=== PATIENT | female | born 2005 | race Caucasian/White ===

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

== ENCOUNTER 2024-06-05 11:21 | Emergency (ER) | payer MEDICAID ==
[~2024-06-05] VITALS: Ht 154.9 cm; Wt 57.2 kg
[~2024-06-05 11:21] MED LIST changes: +FAMO-129 PO; +LOPE2CAP PO; +ONDA-245 PO
[2024-06-05 11:25] VITALS: TEMP 98.9
[2024-06-05 12:09] LABS: URINE HCG NEGATIVE (NEG)
[2024-06-05 12:11] LABS: BILIRUBIN,URINE NEGATIVE (Neg); CLARITY,URINE CLEAR (Clear); COLOR,URINE YELLOW (Yellow); GLUCOSE, URINE NEGATIVE (Neg); KETONES,URINE NEGATIVE (Neg); LEUKOCYTE ESTERASE ,URINE NEGATIVE (Neg); NITRITES, URINE NEGATIVE (Neg); OCCULT BLOOD,URINE NEGATIVE (Neg); PROTEIN,URINE NEGATIVE (Neg); UROBILINOGEN,URINE 0.2 E.U/dL (0.2-1.0)
[2024-06-05 12:15] LABS: UA COLLECTION TYPE CLN CATCH MIDSTREAM
[2024-06-05 12:27] LABS: BASOPHILS % (AUTO) 0.7 % (0-1); EOSINOPHILS # (AUTO) 0.1 X10'3 (0-0.9); EOSINOPHILS % (AUTO) 1.8 % (0-6); HEMATOCRIT 37.4 % (35.0-45.0); HEMOGLOBIN 12.8 g/dl (12.0-16.0); LYMPHOCYTES # (AUTO) 1.7 X10'3 (1.1-4.8); LYMPHOCYTES % (AUTO) 32.8 % (21-51); MEAN CORPUSCULAR HGB CONC 34.2 g/dL (33.0-36.5); MEAN CORPUSCULAR VOLUME 93.5 FL (78-98); MONOCYTES # (AUTO) 0.3 X10'3 (0-0.9); NEUTROPHILS % (AUTO) 59.7 % (42-75); PLATELET COUNT 220 X10'3 (140-440); RED CELL DISTRIBUTION WIDTH 12.7 % (11.5-14.5); WHITE BLOOD COUNT 5.1 X10'3 (4.5-11.0)
[2024-06-05] MEDS: mag hydrox/Alum hydrox/simeth 30ml oral suspension PO STA (12:34)
[2024-06-05 12:37] LABS: ALANINE AMINOTRANSFERASE 20 U/L (12-78); ALBUMIN 3.9 G/DL (3.4-5.0); ALBUMIN/GLOBULIN RATIO 1.1 (1.1-1.5); ALKALINE PHOSPHATASE 59 IU/L (20-180); ANION GAP 5 (8-16); ASPARTATE AMINO TRANSFERASE 15 U/L (10-37); BILIRUBIN,TOTAL 0.4 MG/DL (0.1-1.0); BLOOD UREA NITROGEN 10 MG/DL (7-18); CALCIUM 9.3 MG/DL (8.5-10.1); CHLORIDE 106 MMOL/L (99-107); CREATININE 0.77 MG/DL (0.40-0.90); GLUCOSE 94 MG/DL (70-104); LIPASE 28 U/L (16-77); POTASSIUM 4.4 MMOL/L (3.5-5.1); SODIUM 137 MMOL/L (135-145); TOTAL CARBON DIOXIDE 25.9 MMOL/L (24-32); TOTAL PROTEIN 7.4 G/DL (6.4-8.2); eCRCL 88 ML/MIN; eGFR > 90 ML/MIN
[2024-06-05] MEDS ORDERED: SUCR1TAB PO (15:32)
[2024-06-05] MEDS ORDERED: PANT40TA54 PO (15:32)
[2024-06-05] MEDS: sucralfate 1 gm tablet PO STA (15:35)
[2024-06-05] MEDS: ondansetron 4mg rapidly disintigrating tab PO STA (15:35)
[2024-06-05] MEDS: pantoprazole 40mg Tablet.DR PO STA (15:35)
[2024-06-05] MEDS ORDERED: ONDA-243 PO (15:48)
[2024-06-05 16:49] VITALS: BP 112/63; PULSE 60; RESP 16; O2SAT 98
== END 2024-06-05 16:50 | disposition home or self-care (01) ==
LOC: ER 11:21
DX: K29.00 Acute gastritis without bleeding (principal); Z88.8 Allergy status to other drugs, medicaments and biological substances
CPT/HCPCS: 36415; 76700; 80053; 81003; 81025; 83690; 85025; 99284

== ENCOUNTER 2024-06-09 22:13 | Emergency (ER) | payer MEDICAID ==
[~2024-06-09] VITALS: Ht 154.9 cm; Wt 56.7 kg
[~2024-06-09 22:13] MED LIST changes: +ONDA-243 PO; +PANT40TA54 PO; +SUCR1TAB PO; +iohexol 300mg/ml 100ml inj. ONE
[2024-06-09 22:40] LABS: URINE HCG NEGATIVE (NEG)
[2024-06-09 22:52] LABS: BILIRUBIN,URINE NEGATIVE (Neg); CLARITY,URINE CLEAR (Clear); COLOR,URINE YELLOW (Yellow); GLUCOSE, URINE NEGATIVE (Neg); KETONES,URINE NEGATIVE (Neg); LEUKOCYTE ESTERASE ,URINE NEGATIVE (Neg); NITRITES, URINE NEGATIVE (Neg); OCCULT BLOOD,URINE TRACE-INTACT (Neg); PROTEIN,URINE NEGATIVE (Neg); UA COLLECTION TYPE CLN CATCH MIDSTREAM
[2024-06-09 22:52] LABS: ALANINE AMINOTRANSFERASE 21 U/L (12-78); ALBUMIN 3.8 G/DL (3.4-5.0); ALBUMIN/GLOBULIN RATIO 1.1 (1.1-1.5); ALKALINE PHOSPHATASE 63 IU/L (20-180); ANION GAP 6 (8-16); ASPARTATE AMINO TRANSFERASE 15 U/L (10-37); BILIRUBIN,TOTAL 0.2 MG/DL (0.1-1.0); BLOOD UREA NITROGEN 9 MG/DL (7-18); BUN/CREATININE RATIO 10.2 (10.0-20.0); CALCIUM 9.1 MG/DL (8.5-10.1); CHLORIDE 106 MMOL/L (99-107); CREATININE 0.88 MG/DL (0.40-0.90); GLUCOSE 107 MG/DL (70-104); LIPASE 37 U/L (16-77); POTASSIUM 4.3 MMOL/L (3.5-5.1); SODIUM 140 MMOL/L (135-145); TOTAL CARBON DIOXIDE 28.3 MMOL/L (24-32); TOTAL PROTEIN 7.3 G/DL (6.4-8.2); eCRCL 77 ML/MIN; eGFR 82 ML/MIN
[2024-06-09 22:54] LABS: BASOPHILS % (AUTO) 0.5 % (0-1); EOSINOPHILS # (AUTO) 0.1 X10'3 (0-0.9); EOSINOPHILS % (AUTO) 1.9 % (0-6); HEMATOCRIT 37.2 % (35.0-45.0); HEMOGLOBIN 12.5 g/dl (12.0-16.0); LYMPHOCYTES # (AUTO) 2.6 X10'3 (1.1-4.8); LYMPHOCYTES % (AUTO) 45.3 % (21-51); MEAN CORPUSCULAR HEMOGLOBIN 31.5 PG (27.0-31.0); MEAN CORPUSCULAR HGB CONC 33.7 g/dL (33.0-36.5); MEAN CORPUSCULAR VOLUME 93.5 FL (78-98); MEAN PLATELET VOLUME 9.4 FL (7.4-10.4); MONOCYTES # (AUTO) 0.4 X10'3 (0-0.9); MONOCYTES % (AUTO) 6.1 % (2-12); NEUTROPHILS # (AUTO) 2.7 X10'3 (1.8-7.7); NEUTROPHILS % (AUTO) 46.2 % (42-75); PLATELET COUNT 203 X10'3 (140-440); RED BLOOD COUNT 3.97 X10'6 (4.20-5.60); RED CELL DISTRIBUTION WIDTH 12.7 % (11.5-14.5); WHITE BLOOD COUNT 5.8 X10'3 (4.5-11.0)
[2024-06-09 23:02] LABS: BACTERIA,URINE 2+ /HPF (Neg); CAL OXALATE CRYSTALS 2+ /HPF (NEGATIVE); MUCUS STRANDS MODERATE /LPF (Neg); RBC,URINE 0-2 /HPF (0-2); SQUAMOUS EPITHELIAL CELL,UR MANY /LPF (FEW); WBC,URINE 0-4 /HPF (0-4)
[2024-06-10] MEDS: sennosides/docusate sodium tablet PO ONE (01:42)
[2024-06-10 01:44] VITALS: TEMP 98.7
[2024-06-10 01:50] LABS: C-REACTIVE PROTEIN < 0.05 MG/DL (0.0-0.5)
[2024-06-10] MEDS: magnesium citrate 296ml oral solution PO ONE (02:20)
[2024-06-10] MEDS ORDERED: DOCU100C38 PO (02:59)
[2024-06-10] MEDS: LIDOcaine 2% Viscous 15ml cup MM ONE (03:02)
[2024-06-10] MEDS: mag hydrox/Alum hydrox/simeth 30ml oral suspension PO ONE (03:02)
[2024-06-10] MEDS: polyethylene glycol 3350 17gm powd pack PO ONE (03:02)
[2024-06-10 03:10] VITALS: BP 101/53; PULSE 68; RESP 18; O2SAT 98
== END 2024-06-10 03:13 | disposition home or self-care (01) ==
LOC: ER 22:14
DX: K59.00 Constipation, unspecified (principal); Z88.8 Allergy status to other drugs, medicaments and biological substances; Z91.018 Allergy to other foods; Z91.048 Other nonmedicinal substance allergy status; Z79.899 Other long term (current) drug therapy
CPT/HCPCS: 36415; 74177; 80053; 81001; 81025; 83690; 85025; 85651; 86140; 99285; Q9967; 99284

== ENCOUNTER 2024-06-27 21:09 | Emergency (ER) | payer MEDICAID ==
[~2024-06-27] VITALS: Ht 154.9 cm; Wt 55.7 kg
[~2024-06-27 21:09] MED LIST changes: +DOCU100C38 PO; -iohexol 300mg/ml 100ml inj. ONE
[2024-06-27 21:55] LABS: BASOPHILS % (AUTO) 0.4 % (0-1); EOSINOPHILS # (AUTO) 0.1 X10'3 (0-0.9); EOSINOPHILS % (AUTO) 1.3 % (0-6); HEMATOCRIT 38.3 % (35.0-45.0); HEMOGLOBIN 13.1 g/dl (12.0-16.0); LYMPHOCYTES # (AUTO) 2.3 X10'3 (1.1-4.8); LYMPHOCYTES % (AUTO) 41.2 % (21-51); MEAN CORPUSCULAR HEMOGLOBIN 31.5 PG (27.0-31.0); MEAN CORPUSCULAR HGB CONC 34.1 g/dL (33.0-36.5); MEAN CORPUSCULAR VOLUME 92.5 FL (78-98); MEAN PLATELET VOLUME 8.5 FL (7.4-10.4); MONOCYTES # (AUTO) 0.3 X10'3 (0-0.9); MONOCYTES % (AUTO) 5.9 % (2-12); NEUTROPHILS # (AUTO) 2.9 X10'3 (1.8-7.7); NEUTROPHILS % (AUTO) 51.2 % (42-75); PLATELET COUNT 247 X10'3 (140-440); RED BLOOD COUNT 4.14 X10'6 (4.20-5.60); RED CELL DISTRIBUTION WIDTH 12.6 % (11.5-14.5); WHITE BLOOD COUNT 5.6 X10'3 (4.5-11.0)
[2024-06-27 22:01] LABS: ALANINE AMINOTRANSFERASE 16 U/L (12-78); ALBUMIN/GLOBULIN RATIO 1.1 (1.1-1.5); ALKALINE PHOSPHATASE 58 IU/L (20-180); ANION GAP 10 (8-16); ASPARTATE AMINO TRANSFERASE 16 U/L (10-37); BILIRUBIN,TOTAL 0.4 MG/DL (0.1-1.0); BLOOD UREA NITROGEN 9 MG/DL (7-18); CALCIUM 9.4 MG/DL (8.5-10.1); CHLORIDE 105 MMOL/L (99-107); CREATININE 0.82 MG/DL (0.40-0.90); GLUCOSE 90 MG/DL (70-104); POTASSIUM 4.3 MMOL/L (3.5-5.1); SODIUM 141 MMOL/L (135-145); TOTAL CARBON DIOXIDE 25.6 MMOL/L (24-32); TOTAL PROTEIN 7.7 G/DL (6.4-8.2); eCRCL 83 ML/MIN; eGFR 89 ML/MIN
[2024-06-27 22:07] LABS: HCG SERUM QL NEGATIVE
--- NOTE | 2024-06-27 22:36 | RADIOLOGY REPORT ---
CT CT HEAD INDICATION: wORST HEADACHE OF LIFE COMPARISON: None TECHNIQUE: CT of the head without intravenous contrast. RADIATION DOSE: CTDIvol: mGy, DLP: mGy*cm FINDINGS: There is no evidence of intracranial hemorrhage, infarct, extra-axial collection, mass effect, midli ne shift, herniation or hydrocephalus. The ventricles, sulci and cisterns are normal. The valadez-white differentiation is normal. Soft tissues and osseous structures are unremarkable. IMPRESSION: No intracranial abnormality.
[2024-06-27] MEDS: metoclopramide 5 mg/ml inj IV ONE (23:33)
[2024-06-27] MEDS: ketorolac trometh 30MG/ML vial 30 MG/ML VIAL IV ONE (23:33)
[2024-06-27] MEDS: acetaminophen 1,000mg/100ml IV 100 ML IV ONE (23:34)
[2024-06-27] MEDS: normal saline 1000ml 1,000 ML IV ONE (23:34)
[2024-06-27] MEDS: diphenhydrAMINE 50 mg/ml inj IV ONE (23:34)
[2024-06-27 23:44] VITALS: TEMP 98.7
--- NOTE | 2024-06-27 23:49 | Physician Documentation ---
History of Present Illness General Chief Complaint: Headache Stated Complaint: MIGRAIN Time Seen by MD: 21:34 Primary Medical Doctor: FABIÁN History of Present Illness Initial Comments Melissa is otherwise a healthy 19-year-old female who presents to the emergency department with a complaint of headache that has been present for 6-7 hours. Patient has a history of migraines and is incompletely sure of how many migraine day she has a month but it seems to be less than four five. Her headache today is different in character and in severity. It was very severe today with associated nausea, visual difficulties and sound aggravation. Pain began as temporal and then went to the center of her scalp in his traveled backwards. 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 Patient was does not take Migraine prophylactic medications. Denies fever, recent illness injury or fevers. Medication Reconciliation Allergies: Coded Allergies: lamotrigine (Verified Allergy, Severe, SHERMAN-GAVIN, 06/27/24) shrimp (Unverified Allergy, Unknown, 06/27/24) aloe vera (Verified Adverse Reaction, Intermediate, BOURNE SKIN, 06/27/24) Scheduled Bisacodyl (Dulcolax), 4 TAB PO ONCE Docusate Sodium (Docusate Sodium), 1 CAP PO Q12H Famotidine (Pepcid), 1 TAB PO Q12H Lamotrigine (Lamotrigine), 1 TAB PO DAILY, (Reported) Lansoprazole (Prevacid), 1 CAP PO DAILY Loperamide Hcl (Loperamide), 2 CAP PO Q6H ONDANSETRON ODT 4mg tablet (Ondansetron Odt), 4 MG PO BID Ondansetron 8mg ODT (Ondansetron Odt), 1 TAB PO Q6H Pantoprazole Sodium (Pantoprazole Sodium), 1 TAB PO DAILY Polyethylene Glycol 3350 (Miralax), 17 GM PO DAILY Quetiapine Fumarate (Quetiapine Fumarate), 1 TAB PO HS, (Reported) Sucralfate (Sucralfate), 1 TAB PO Q6H Vilazodone HCl (Vilazodone HCl), 1 TAB PO DAILY, (Reported) Past Medical History Past Medical History: *PSYCH* Other Past Surgical History: 'Tubes in her ears' Alcohol Use: None Drug Use: none Lives with: Mother, Father Lives In: Home Review of Systems All Other Systems at this time: Reviewed and Negative Constitutional: Denies: fever, chills Eye: Reports: pain, photophobia RESP: Denies: short of breath, cough CV: Denies: chest pain, palpitations GI: Reports: nausea Neuro: Reports: headache; Denies: seizures, dizziness, weakness, numbness, tingling Physical Exam Physical Exam Vital Signs: RN Vital Signs have been reviewed: Yes, Temperature: 98.7, Source: Oral, Heart Rate: 78, Respiratory Rate: 14, BP: 119/66, Pulse Oximetry: 99, Weight: 55.680 Oxygen Flow Rate: 0 General Appearance: alert, WD/WN, moderate distress Head: normal inspection Face: normal inspection Pupils/EOM/Fundus: PERRLA Neck: non-tender, full range of motion, supple; No: meningeal signs Respiratory: lungs clear Chest: no accessory muscle use Cardiovascular: regular rate, rhythm Gastrointestinal: normal palpation Back: normal inspection Extremities: normal range of motion Neurologic: oriented x4, dredge mate II-XII nml as tested Motor / Sensory: no motor deficit, no sensory deficit Psychiatric: normal mood/affect Skin: normal color, warm/dry Progress Results/Orders Results/Orders Orders - CYDNEY WERNER PAC Urinalysis, Cult If Indicated (06/27/24 21:33) Ct Head (06/27/24 22:20) Normal Saline 1000ml (Sodium Chloride 10 (06/27/24 22:55) Completed Orders - CYDNEY WERNER PAC Cbc/Diff (06/27/24 21:33) CMP (06/27/24 21:33) Hcg Serum Ql (06/27/24 21:33) Ct Head (06/27/24 22:20) Acetaminophen 1,000mg/100ml Iv (Ofirmev (06/27/24 22:55) Ketorolac Trometh 30mg/Ml Vial (Toradol (06/27/24 22:55) Metoclopramide Inj (Reglan Inj) (06/27/24 22:55) Diphenhydramine Inj (Benadryl Inj.) (06/27/24 22:55) Medications Received in ER Medications (Trade) Dose Ordered Sig/Priyanka Route PRN Reason Start Time Stop Time Status Last Admin Dose Admin Acetaminophen 100 ml @ 400 mls/hr ONCE ONCE IV 06/27/24 22:55 06/27/24 23:09 DC 06/27/24 23:34 400 MLS/HR Sodium Chloride 1,000 ml @ 1,000 mls/hr ONCE ONCE IV 06/27/24 22:55 06/27/24 23:54 06/27/24 23:34 1,000 MLS/HR (Toradol inj. 30mg/ml) 30 mg ONCE ONCE IV 06/27/24 22:55 06/27/24 22:56 DC 06/27/24 23:33 30 MG (Reglan inj) 10 mg ONCE ONCE IV 06/27/24 22:55 06/27/24 22:58 DC 06/27/24 23:33 10 MG (Benadryl inj.) 25 mg ONCE ONCE IV 06/27/24 22:55 06/27/24 22:56 DC 06/27/24 23:34 25 MG Vital Signs 06/27/24 06/27/24 21:25 23:33 Temp 98.7 Pulse 78 Resp 16 14 B/P (MAP) 119/66 Pulse Ox 99 O2 Flow Rate 0 Laboratory Tests Test 06/27/24 21:40 White Blood Count 5.6 Red Blood Count 4.14 L Hemoglobin 13.1 Hematocrit 38.3 Mean Corpuscular Volume 92.5 Mean Corpuscular Hemoglobin 31.5 H Mean Corpuscular Hemoglobin Concent 34.1 Red Cell Distribution Width 12.6 Platelet Count 247 Mean Platelet Volume 8.5 Neutrophils (%) (Auto) 51.2 Lymphocytes (%) (Auto) 41.2 Monocytes (%) (Auto) 5.9 Eosinophils (%) (Auto) 1.3 Basophils (%) (Auto) 0.4 Neutrophils # (Auto) 2.9 Lymphocytes # (Auto) 2.3 Monocytes # (Auto) 0.3 Eosinophils # (Auto) 0.1 Basophils # (Auto) 0.0 CBC Comment Sodium Level 141 Potassium Level 4.3 Chloride Level 105 Carbon Dioxide Level 25.6 Anion Gap 10 Blood Urea Nitrogen 9 Creatinine 0.82 Estimated GFR/1.73 m2 89 BUN/Creatinine Ratio 11.0 Glucose Level 90 Calcium Level 9.4 Total Bilirubin 0.4 Aspartate Amino Transf (AST/SGOT) 16 Alanine Aminotransferase (ALT/SGPT) 16 Alkaline Phosphatase 58 Total Protein 7.7 Albumin 4.0 Globulin 3.7 Albumin/Globulin Ratio 1.1 Human Chorionic Gonadotropin, Qual Negative Chemistry Comments Medical Decision Making Differential Diagnosis 19-year-old female presents with severe headache that is out of characteristic for her normal migraine. Symptoms has been present for about 6 hours. Associated mild nausea and photophobia and noise intolerances. Patient was laboratory screening is unremarkable for hyponatremia, CT imaging unremarkable and patient treated with IV normal saline bolus along with IV Tylenol, Toradol, Benadryl and Reglan. Patient was headache mitigating she understands to follow up with the primary care physician for referral to Neurology and consideration of Botox or other prophylactic migraine therapies. She was discharged grossly neurologically intact without focal neuro deficits. The further clinical suspicion for SAH, pseudotumor cerebri, cranial neoplasms or other unforeseen pathologies. Departure Disposition: HOME / SELF CARE / HOMELESS Impression: Primary Impression: Migraine Qualified Codes: G43.909 - Migraine, unspecified, not intractable, without status migrainosus Condition: Improved Discharge Instructions: Headache Additional Instructions: Tonight in the emergency department you had labs obtained, CT your head obtained in both are reassuring. You received migraine management medications and fluid hydration. Please make follow up appointment with your primary care physician for consideration of referral for Neurology for evaluation for prophylactic migraine therapy such as Botox. Thank you for visiting emergency department [facility]. Referrals: NO PRIMARY CARE PROVIDER (PCP) Education Educated: Patient Educated regarding: diagnosis, treatment, prognosis, need for follow up Signature Scribe Signature: . Attestation: . CYDNEY WERNER [facility] June 27, 2024 23:49
[2024-06-28 00:12] VITALS: BP 126/80; PULSE 80; RESP 16; O2SAT 99
== END 2024-06-28 00:14 | disposition home or self-care (01) ==
LOC: ER 21:10
DX: G43.909 Migraine, unspecified, not intractable, without status migrainosus (principal); Z88.8 Allergy status to other drugs, medicaments and biological substances
CPT/HCPCS: 36415; 70450; 80053; 84703; 85025; 96365; 96375; 99285; J0131; J1200; J1885; J2765; J7030

== ENCOUNTER 2024-07-22 17:14 | Emergency (ER) | payer MEDICAID ==
[~2024-07-22] VITALS: Ht 154.9 cm; Wt 55.5 kg
[2024-07-22 17:25] VITALS: BP 118/71; PULSE 87; RESP 16; O2SAT 98
[2024-07-22] MEDS: LIDOcaine 1% 30ml preserv. free vial IJ ONE (19:13)
--- NOTE | 2024-07-22 19:16 | Physician Documentation ---
History of Present Illness ~ Chief Complaint: Laceration Stated Complaint: FINGER LAC Time Seen by MD: 18:13 Primary Medical Doctor: FABIÁN VIGIL This is a 19-year-old female who presents with a laceration to the palmar aspect of her left 4th finger due to a sharp piece of glass on a decoration, patient reports that the decorations was new out of the box and clean. Patient reports last tetanus shot last year. Tetanus Within 5 Years: Yes Medication Reconciliation Allergies: Coded Allergies: lamotrigine (Verified Allergy, Severe, SHERMAN-GAVIN, 06/27/24) shrimp (Unverified Allergy, Unknown, 06/27/24) aloe vera (Verified Adverse Reaction, Intermediate, BOURNE SKIN, 06/27/24) Scheduled Bisacodyl (Dulcolax), 4 TAB PO ONCE Docusate Sodium (Docusate Sodium), 1 CAP PO Q12H Famotidine (Pepcid), 1 TAB PO Q12H Lamotrigine (Lamotrigine), 1 TAB PO DAILY, (Reported) Lansoprazole (Prevacid), 1 CAP PO DAILY Loperamide Hcl (Loperamide), 2 CAP PO Q6H ONDANSETRON ODT 4mg tablet (Ondansetron Odt), 4 MG PO BID Ondansetron 8mg ODT (Ondansetron Odt), 1 TAB PO Q6H Pantoprazole Sodium (Pantoprazole Sodium), 1 TAB PO DAILY Polyethylene Glycol 3350 (Miralax), 17 GM PO DAILY Quetiapine Fumarate (Quetiapine Fumarate), 1 TAB PO HS, (Reported) Sucralfate (Sucralfate), 1 TAB PO Q6H Vilazodone HCl (Vilazodone HCl), 1 TAB PO DAILY, (Reported) Past Medical History Past Medical History: *PSYCH* Other Past Surgical History: 'Tubes in her ears' Alcohol Use: None Drug Use: none Lives with: Mother, Father Lives In: Home Review of Systems ROS Laceration to left 4th finger as stated above in the HPI, otherwise all systems are reviewed and negative. Physical Exam Vital Signs: Temperature: 98.8, Source: Oral, Heart Rate: 87, Respiratory Rate: 16, BP: 118/71, Pulse Oximetry: 98, Weight: 55.450 Physical Exam VITALS: Reviewed and as above. GENERAL: Alert, nontoxic appearing, no apparent distress. RESPIRATORY: No increased work of breathing, no respiratory distress, speaking in full clear sentences SKIN: Approximately 1 cm laceration to palmar aspect of left 4th finger, appears shallow, no evidence of retained foreign body, no evidence of tendon involvement Procedures Laceration/Wound Repair Laceration : Location: Left 4th finger Length (cm): 1 Anesthesia: Lidocaine, other (Utilizing digital block) Volume Anesthetic (mls): 4 Prep: irrigated by nurse, scrubbed Margins: revised Foreign Body: not identified Repaired: skin Wound Repaired With: sutures Suture Size/Type: 6-0, ethilon Number of Superficial Sutures: 4 Layer Closure?: No Dressing Applied: simple Splint Applied?: Yes Tolerated Procedure Well?: yes, no complications Progress Results/Orders Results/Orders Orders - CURT PELAYO Laceration/I&D Tray Set Up (07/22/24 18:24) Wound Care Orders (07/22/24 18:24) Dermabond To Bedside (07/22/24 18:24) Completed Orders - CURT PELAYO Lidocaine 1% 30ml Vial (Xylocaine 1% Via (07/22/24 18:25) Vital Signs 07/22/24 07/22/24 17:25 19:20 Temp 98.8 98.8 Pulse 87 Resp 16 B/P (MAP) 118/71 Pulse Ox 98 Medical Decision Making Findings This 19-year-old female presented with a laceration to your left 4th finger, laceration appears complicated and shallow. Reassuring patient has had tetanus booster in the last year. The area was anesthetized and thoroughly irrigated by nursing staff, due to the patient's reporting sensitivity to skin glue the area was sutured utilizing four simple interrupted sutures utilizing six 0 Ethilon without complication. No evidence of retained foreign body and no evidence of neurovascular or tendon injury. Patient provided home care instructions and return to care precautions which she verbalized understanding of. This is this was a fresh clean wound without evidence of complication or infection antibiotics were not indicated. Differential Dx:Considerations: Include: Abrasion, Avulsion, Contusion, Fracture, Neurovascular injury, Retained foreign body Departure Disposition: 01 HOME / SELF CARE / HOMELESS Impression: Primary Impression: Laceration Condition: Improved Discharge Instructions: Laceration Care, Adult, [id number] Additional Instructions: Keep the area clean dry, and covered, wash the area least once a day gently and replace dressing if it becomes wet or soiled. Please do not soak the area or go swimming. Return in 7-10 days to your choice of medical provider including coming back to the emergency department for removal of sutures. Please follow up with your primary care provider in the next few days for wound recheck. Please return to the emergency department for any new or worsening concerning symptoms including but not limited to signs of infection such as increased pain and swelling to the area, or if you develop a fever. Referrals: NO PRIMARY CARE PROVIDER (PCP) Education Educated: Patient Educated regarding: diagnosis, treatment, prognosis, need for follow up Signature Scribe Signature: No scribe Attestation: The note accurately reflects work and decisions made by me.JENNY Stover 07/23/24 02:37 CURT PELAYO July 22, 2024 19:16
[2024-07-22 19:20] VITALS: TEMP 98.8
== END 2024-07-22 19:23 | disposition home or self-care (01) ==
LOC: ER 17:14
DX: S61.215A Laceration without foreign body of left ring finger without damage to nail, initial encounter (principal); Z88.8 Allergy status to other drugs, medicaments and biological substances; Z91.018 Allergy to other foods; Z79.899 Other long term (current) drug therapy; W25.XXXA Contact with sharp glass, initial encounter; Y93.89 Activity, other specified; Y92.89 Other specified places as the place of occurrence of the external cause; Y99.8 Other external cause status
CPT/HCPCS: 12001; 99282; A6449

== ENCOUNTER 2024-09-04 20:00 | Emergency (ER) | payer MEDICAID ==
[~2024-09-04] VITALS: Ht 154.9 cm; Wt 55.1 kg
[~2024-09-04 20:00] MED LIST changes: +LAMO-24 PO; -LAMO25TA5 PO
[2024-09-04 20:31] LABS: URINE HCG NEGATIVE (NEG)
[2024-09-04 20:45] LABS: LEUKOCYTE ESTERASE ,URINE NEGATIVE (Neg); NITRITES, URINE NEGATIVE (Neg); OCCULT BLOOD,URINE TRACE-INTACT (Neg)
[2024-09-04 20:47] LABS: UA COLLECTION TYPE CLN CATCH MIDSTREAM
[2024-09-04 20:52] LABS: MUCUS STRANDS MODERATE /LPF (Neg); SQUAMOUS EPITHELIAL CELL,UR FEW /LPF (FEW)
[2024-09-04 21:10] LABS: MEAN PLATELET VOLUME 9.0 FL (7.4-10.4); RED CELL DISTRIBUTION WIDTH 12.6 % (11.5-14.5)
[2024-09-04 21:17] LABS: CREATININE 0.76 MG/DL (0.40-0.90); TOTAL CARBON DIOXIDE 21.5 MMOL/L (24-32); eCRCL 89 ML/MIN; eGFR > 90 ML/MIN
[2024-09-04] MEDS: mag hydrox/Alum hydrox/simeth 30ml oral suspension PO ONE (22:55)
[2024-09-04] MEDS: normal saline 1000ml 1,000 ML IV ONE (22:55)
--- NOTE | 2024-09-04 23:34 | Physician Documentation ---
History of Present Illness Chief Complaint: Abdominal Pain Stated Complaint: STOMACH PROBLEMS Time Seen by MD: 20:36 Primary Medical Doctor: FABIÁN Mode of Arrival: POV HPI 19-year-old female who presents with abdominal pain and nausea. She tells me she has a long history of abdominal pain. She has had an extensive workup in the past including abdominal imaging, upper endoscopy, and has been treated with multiple modalities including antacid medications, dietary changes, supplements, and opiate pain medications. Nothing is making her symptoms better. She tells me that today the abdominal pain was unbearable and so she came in to get rechecked. She states it is located in her upper and central abdomen. No radiation. She reports associated nausea. Nothing makes the pain better. Eating makes the pain worse. She has not been eating much, but has been trying to drink a lot of fluids. No other new symptoms compared to her previous episodes. No fevers. No diarrhea. No dysuria. No blood in her stool. Last Menstrual Period: Aug 15, 2024 Medication Reconciliation Allergies: Coded Allergies: lamotrigine (Verified Allergy, Severe, SHERMAN-GAVIN, 06/27/24) shrimp (Unverified Allergy, Unknown, 06/27/24) aloe vera (Verified Adverse Reaction, Intermediate, BOURNE SKIN, 06/27/24) Scheduled Bisacodyl (Dulcolax), 4 TAB PO ONCE Docusate Sodium (Docusate Sodium), 1 CAP PO Q12H Famotidine (Pepcid), 1 TAB PO Q12H Lamotrigine (Lamotrigine), 1 TAB PO DAILY, (Reported) Lansoprazole (Prevacid), 1 CAP PO DAILY Loperamide Hcl (Loperamide), 2 CAP PO Q6H ONDANSETRON ODT 4mg tablet (Ondansetron Odt), 4 MG PO BID Ondansetron 8mg ODT (Ondansetron Odt), 1 TAB PO Q6H Pantoprazole Sodium (Pantoprazole Sodium), 1 TAB PO DAILY Polyethylene Glycol 3350 (Miralax), 17 GM PO DAILY Quetiapine Fumarate (Quetiapine Fumarate), 1 TAB PO HS, (Reported) Sucralfate (Sucralfate), 1 TAB PO Q6H Vilazodone HCl (Vilazodone HCl), 1 TAB PO DAILY, (Reported) Past Medical History Past Medical History: *PSYCH* Other Past Surgical History: 'Tubes in her ears' Last Menstrual Period: Aug 15, 2024 Alcohol Use: None Drug Use: none Lives with: Mother, Father Lives In: Home Review of Systems Constitutional: Denies: fever Gastrointestinal: Reports: abdominal pain, nausea Physical Exam Vital Signs: Temperature: 98.5, Source: Temporal, Heart Rate: 80, Respiratory Rate: 16, BP: 118/72, Pulse Oximetry: 100, Weight: 55.100 Oxygen Flow Rate: 0 Physical Exam General: This is a thin young female, intermittently tearful, at bedside HEENT: Atraumatic, oropharynx appears dry Heart: Regular rate and rhythm, normal-appearing peripheral perfusion Lungs: normal work of breathing, normal oxygen saturation on room air Abdomen: Soft, nondistended. Mild tenderness to palpation in the central abdomen and epigastric region, otherwise no rebound or guarding Neuro: Alert and oriented, no focal deficits Psychiatric: Appears anxious and stressed, intermittently tearful Progress Results/Orders Results/Orders Orders - CYDNEY BENNETT MD Lidocaine 2% Viscous (Xylocaine 2% Visco (09/05/24 00:00) Completed Orders - CYDNEY BENNETT MD Hcg, Ur Ql (09/04/24 20:04) Cbc/Diff (09/04/24 20:04) BMP (09/04/24 20:04) Lipase (09/04/24 20:04) CMP (09/04/24 20:04) Ua W/Microscopic, Cult If Ind (09/04/24 20:05) Normal Saline 1000ml (0.9% Sodium Chlori (09/04/24 21:50) Pantoprazole 40mg Iv (Protonix 40mg Iv) (09/04/24 21:50) Mag & Alum Hydrox/Simeth Susp (Maalox Or (09/04/24 21:50) Medications Received in ER Medications (Trade) Dose Ordered Sig/Priyanka Route PRN Reason Start Time Stop Time Status Last Admin Dose Admin Sodium Chloride 1,000 ml @ 1,000 mls/hr ONCE ONCE IV 09/04/24 21:50 09/04/24 22:49 DC 09/04/24 22:55 1,000 MLS/HR (Protonix 40mg IV) 40 mg ONCE ONCE IV 09/04/24 21:50 09/04/24 21:51 DC 09/04/24 22:56 40 MG (Maalox oral suspension) 30 ml ONCE ONCE PO 09/04/24 21:50 09/04/24 21:51 DC 09/04/24 22:55 30 ML Vital Signs 09/04/24 09/04/24 09/04/24 20:06 21:24 21:28 Temp 98.5 Pulse 96 80 Resp 20 16 16 B/P (MAP) 124/78 118/72 (87) Pulse Ox 97 100 O2 Flow Rate 0 Laboratory Tests Test 09/04/24 20:05 09/04/24 20:54 Urine Specimen Description Cln catch midstream Urine Color Yellow Urine Clarity Clear Urine pH 6.0 Urine Specific [place] 1.020 Urine Protein Negative Urine Glucose (UA) Negative Urine Ketones Trace H Urine Occult Blood Trace-intact Urine Nitrite Negative Urine Bilirubin Negative Urine Urobilinogen 2.0 H Urine Leukocyte Esterase Negative Urine RBC 0-2 Urine WBC 0-4 Urine Squamous Epithelial Cells Few Urine Bacteria 2+ Urine Mucus Moderate Urine Culture Indicated Not ind Volume Urine Centrifuged 10 ml Urine HCG, Qualitative Negative Urine Comment White Blood Count 7.6 Red Blood Count 3.84 L Hemoglobin 12.2 Hematocrit 35.8 Mean Corpuscular Volume 93.2 Mean Corpuscular Hemoglobin 31.8 H Mean Corpuscular Hemoglobin Concent 34.1 Red Cell Distribution Width 12.6 Platelet Count 213 Mean Platelet Volume 9.0 Neutrophils (%) (Auto) 46.8 Lymphocytes (%) (Auto) 44.4 Monocytes (%) (Auto) 7.1 Eosinophils (%) (Auto) 1.3 Basophils (%) (Auto) 0.4 Neutrophils # (Auto) 3.6 Lymphocytes # (Auto) 3.4 Monocytes # (Auto) 0.5 Eosinophils # (Auto) 0.1 Basophils # (Auto) 0.0 CBC Comment Sodium Level 136 Potassium Level 3.2 L Chloride Level 104 Carbon Dioxide Level 21.5 L Anion Gap 11 Blood Urea Nitrogen 9 Creatinine 0.76 Estimated GFR/1.73 m2 > 90 BUN/Creatinine Ratio 11.8 Glucose Level 86 Calcium Level 9.3 Total Bilirubin 0.6 Aspartate Amino Transf (AST/SGOT) 16 Alanine Aminotransferase (ALT/SGPT) 19 Alkaline Phosphatase 56 Total Protein 7.5 Albumin 3.8 Globulin 3.7 Albumin/Globulin Ratio 1.0 L Lipase 24 Chemistry Comments Medical Decision Making Additional info obtained from: old records Findings I reviewed old records which showed she has had multiple CT scans, ultrasounds, and upper endoscopy within the last year. No dangerous findings identified. Assessment The patient presents with chronic abdominal pain and nausea. On chart review she has had an extensive workup in the past, with no dangerous findings or specific cause identified for her symptoms. Here today she has similar symptoms. Repeat labs were obtained which show mild hypokalemia but no other acute abnormality. She was given IV fluids and antacid treatment with only partial improvement. I had a long discussion with the patient and her . I discussed her previous testing and imaging. I explained that we do not really have any further tests or treatments here in the emergency department beyond what she has already had done. I do not feel that repeat abdominal imaging would be beneficial today given that she has a same symptoms as previous. I do feel that stress and anxiety or playing a large part in her symptoms. She already has a counselor. Following this discussion, I again offered to give her antacid type medications or other symptomatic treatments for her stomach. She declined. She will be discharged with a plan to try and follow up with the primary care doctor to get a Gastroenterology referral. Departure Time of Disposition: 23:33 Disposition: HOME / SELF CARE / HOMELESS Impression: Primary Impression: Chronic abdominal pain Additional Impression: Nausea Condition: Stable Discharge Instructions: Abdominal Pain (Nonspecific) Referrals: NO PRIMARY CARE PROVIDER (PCP) Education Educated: Patient, Family Educated regarding: diagnosis, treatment, need for follow up Signature Scribe Signature: [email or web address] Attestation: CYDNEY Whitney MD Sep 04, 2024 23:34
[2024-09-04 23:54] VITALS: BP 118/72; PULSE 66; RESP 16; TEMP 98.5; O2SAT 100
[2024-09-05] MEDS ORDERED: LIDOcaine 2% Viscous 15ml cup MM ONE
== END 2024-09-04 23:58 | disposition home or self-care (01) ==
LOC: ER 20:01
DX: G89.29 Other chronic pain (principal); R10.9 Unspecified abdominal pain; R11.0 Nausea; Z88.8 Allergy status to other drugs, medicaments and biological substances; Z91.018 Allergy to other foods; Z79.899 Other long term (current) drug therapy
CPT/HCPCS: 36415; 80053; 81001; 81025; 83690; 85025; 96361; 96374; 99283; J2470; J7030

== ENCOUNTER 2024-10-26 23:28 | Emergency (ER) | payer MEDICAID ==
[~2024-10-26] VITALS: Ht 154.9 cm; Wt 57.0 kg
--- NOTE | 2024-10-27 03:35 | Physician Documentation ---
History of Present Illness ~ Chief Complaint: Headache Stated Complaint: MIGRAINE Time Seen by MD: 03:18 OK to notify your PCP?: Yes Primary Medical Doctor: FABIÁN Source: patient, family Mode of Arrival: POV Exam Limitations: no limitations HPI This patient is a 19 y/o female who presents to ED with chief complaint of headache. Patient states she has had a migraine since 0400AM yesterday and has been constant all day. She describes this headache as a pressure type pain in her head. She states she has occasionally had headaches in the past, but never this severe. She does endorse sensitivity to light and sounds as well. Patient has Abdiel's Gavin's syndrome, and so is somewhat limited in what meds she can take; states unable to take Tylenol or ibuprofen. She does states she has received imitrex injections in the past though, and they have worked well. Patient denies any other associated symptoms at this time. Patient denies any other alleviating or exacerbating factors. Medication Reconciliation Allergies: Coded Allergies: lamotrigine (Verified Allergy, Severe, ABDIEL-GAVIN, 10/26/24) shrimp (Unverified Allergy, Unknown, 10/26/24) aloe vera (Verified Adverse Reaction, Intermediate, [place], 10/26/24) Scheduled Bisacodyl (Dulcolax), 4 TAB PO ONCE Docusate Sodium (Docusate Sodium), 1 CAP PO Q12H Famotidine (Pepcid), 1 TAB PO Q12H Lamotrigine (Lamotrigine), 1 TAB PO DAILY, (Reported) Lansoprazole (Prevacid), 1 CAP PO DAILY Loperamide Hcl (Loperamide), 2 CAP PO Q6H ONDANSETRON ODT 4mg tablet (Ondansetron Odt), 4 MG PO BID Ondansetron 8mg ODT (Ondansetron Odt), 1 TAB PO Q6H Pantoprazole Sodium (Pantoprazole Sodium), 1 TAB PO DAILY Polyethylene Glycol 3350 (Miralax), 17 GM PO DAILY Quetiapine Fumarate (Quetiapine Fumarate), 1 TAB PO HS, (Reported) Sucralfate (Sucralfate), 1 TAB PO Q6H Sumatriptan Succinate (Imitrex*), 1 TAB PO UD Vilazodone HCl (Vilazodone HCl), 1 TAB PO DAILY, (Reported) Scheduled PRN ONDANSETRON ODT 4mg tablet (Ondansetron Odt), 1 TAB PO Q6H PRN PRN for nausea/vomiting Past Medical History Past Medical History: Headache, *PSYCH* Other Past Medical History: Abdiel's Gavin's syndrome Past Surgical History: tonsillectomy Other Past Surgical History: 'Tubes in her ears' Smoking Status: Never smoker Alcohol Use: None Drug Use: none Lives with: Mother, Father Lives In: Home Review of Systems All Other Systems at this time: Reviewed and Negative ROS As stated in the HPI above, otherwise all other systems have been reviewed and negative. Physical Exam Vital Signs: RN Vital Signs have been reviewed: Yes, Temperature: 98.1, Source: Oral, Heart Rate: 67, Respiratory Rate: 16, BP: 122/74, Pulse Oximetry: 99, Weight: 57.000 Oxygen Flow Rate: 0 Physical Exam General: The patient is well developed, well nourished, nontoxic appearing and is in no acute distress. Skin: Carefree, warm and dry with no rashes. HEENT: Head was normocephalic and atraumatic. Eyes - photophobia. Pupils equal, round, reactive to light and accommodation. Extraocular movements were intact. Conjunctivae were nonicteric. The mouth and oropharynx were clear with moist mucous membranes. There were no pharyngeal exudates or erythema. Neck: Supple and nontender. There was no jugular venous distention, lymphadenopathy, thyromegaly or masses. Chest: Clear to auscultation bilaterally without wheezes, rales or rhonchi. No accessory muscle use. No dullness to percussion. Heart: Rate regular and rhythmic. S1, S2. No murmurs. Palpation of the chest wall was normal. No rubs or thrills. Abdomen: Soft, nontender and nondistended. Positive bowel sounds. No guarding or rebound. No hepatosplenomegaly or palpable masses. Extremities: No cyanosis, clubbing or edema. The patient moves all extremities. Pulses were equal and symmetric. Neurologic: Motor and sensation grossly intact. A & O x4. Psychologic: The patient was oriented to person, place and time. Progress Results/Orders Reviewed/noted all lab results: Yes Results/Orders Orders - PASQUALE CASTILLO MD Morphine 2mg/Ml Inj. (Morphine Inj.) (10/27/24 03:35) Completed Orders - PASQUALE CASTILLO MD Ondansetron Inj. (Zofran 4mg/2ml Vial) (10/27/24 03:35) Normal Saline 1000ml (0.9% Sodium Chlori (10/27/24 03:35) Dexamethasone Inj (Decadron 10mg/Ml Inj) (10/27/24 03:32) Sumatriptan Succ. Inj. (Imitrex 6mg Inj. (10/27/24 03:35) Medications Received in ER Medications (Trade) Dose Ordered Sig/Priyanka Route PRN Reason Start Time Stop Time Status Last Admin Dose Admin (Zofran 4mg/2ml vial) 4 mg ONCE ONCE IV 10/27/24 03:35 10/27/24 03:36 DC 10/27/24 04:08 4 MG (0.9% sodium chloride (NS) 1000ml IV soln) 2,000 ml ONCE ONCE IVB 10/27/24 03:35 10/27/24 03:36 DC 10/27/24 04:08 2,000 ML (Decadron 10mg/ ml inj) 10 mg ONCE STAT IV 10/27/24 03:32 10/27/24 03:36 DC 10/27/24 04:08 10 MG (Imitrex 6mg inj.) 6 mg ONCE ONCE SQ 10/27/24 03:35 10/27/24 03:36 DC 10/27/24 04:15 6 MG Vital Signs 10/26/24 10/27/24 10/27/24 23:47 03:42 03:43 Temp 98.1 Pulse 67 69 Resp 16 12 B/P (MAP) 122/74 110/69 (83) Pulse Ox 99 100 O2 Flow Rate 0 Re-Evaluation Re-Evaluation : Re-Evaluation Time: 04:45 Re-Evaluation: Improved Progress On re-evaluation patient states her headache has improved. Patient was seen and examined. Patient is given reassurance. Patient received 2 L of fluids morphine Zofran dexamethasone and Imitrex in his feeling much better. Patient was prescribed Imitrex as well as Zofran. She appears well her symptoms are improving patient was discharged home. Patient reports no fevers or chills no signs of infection sinusitis was considered. No neck pain for tension headaches. No URI symptoms no infection. Patient has a history of headaches was treated and discharged. Although headache was without aura and rapid onset there was no meningeal signs and symptoms are improving unlikely to have subarachnoid bleed or brain aneurysm. Medical Decision Making Additional info obtained from: old records Differential Dx:Considerations: Include: SHARPE-Migraine, SHARPE-Hypertensive, Sinusitis, Other Departure Disposition: HOME / SELF CARE / HOMELESS Impression: Primary Impression: Headache Qualified Codes: R51.9 - Headache, unspecified Additional Impression: Migraine Qualified Codes: G43.009 - Migraine without aura, not intractable, without status migrainosus Condition: Improved Discharge Instructions: Headache Referrals: NO PRIMARY CARE PROVIDER (PCP) Prescriptions ONDANSETRON ODT 4mg tablet (ONDANSETRON ODT) 4 Mg Tab.rapdis 1 TAB PO Q6H PRN PRN for nausea/vomiting for 4 Days, #16 TAB 0 Refills Prov: PASQUALE CASTILLO MD 10/27/24 Sumatriptan Succinate (Imitrex*) 100 Mg Tablet 1 TAB PO UD for headache for 30 Days, #9 TAB with fluids as early as possible after the onset of a migraine attack;may repeat after 2 hours if headache returns, not to ex Prov: PASQUALE CASTILLO MD 10/27/24 Education Educated: Patient Educated regarding: diagnosis, need for follow up, other Signature Scribe Signature: Scribed for Pasquale Castillo MD by Giulia Wasserman. 10/27/24 03:37 Attestation: The note accurately reflects work and decisions made by me.Pasquale Castillo MD 10/27/24 03:35 PASQUALE CASTILLO MD Oct 27, 2024 03:35
[2024-10-27] MEDS: ondansetron/PF 4mg/2ml inj IV ONE (04:08)
[2024-10-27] MEDS: normal saline 1000ML IV soln IVB ONE (04:08)
[2024-10-27] MEDS: dexamethasone sod phosphate 10mg/ml inj IV STA (04:08)
[2024-10-27] MEDS: SUMAtriptan succ. 6 MG/0.5ml vial SQ ONE (04:15)
[2024-10-27] MEDS ORDERED: ONDA-243 PO (04:46)
[2024-10-27] MEDS ORDERED: SUMA100T PO (04:46)
[2024-10-27 05:27] VITALS: BP 115/73; PULSE 88; RESP 16; TEMP 98.1; O2SAT 100
== END 2024-10-27 05:28 | disposition home or self-care (01) ==
LOC: ER 23:29
DX: G43.009 Migraine without aura, not intractable, without status migrainosus (principal); Z90.89 Acquired absence of other organs
CPT/HCPCS: 96361; 96372; 96374; 96375; 99284; J1100; J2405; J3030; J7030